=== PATIENT | female | born 1970 | race African-American/Black ===

== ENCOUNTER 2017-05-19 02:38 | Inpatient (IN) | payer OTHER ==
[~2017-05-19] VITALS: Ht 160 cm; Wt 102.9 kg
[2017-05-19] VITALS (8 sets, daily range): BP systolic 121–214; BP diastolic 59–114
--- NOTE | ~2017-05-19 | HC ---
[facility] [place] [address] CONSULTATION Name: MELODY WHITAKER Room #: 214-P [facility] IN M.R.#: [id number] Admission: 05/19/17 Attend Phys: Robert Olea MD Discharge: 05/20/17 Date of : 70 Report #: [id number] THIS REPORT FOR: //name// CC: Dino Olea MD DATE OF SERVICE: 05/19/2017 TYPE OF REPORT: General surgery consultation. REASON FOR CONSULTATION: Abdominal pain. HISTORY OF PRESENT ILLNESS: This is a 46-year-old -[place] female patient of Dr. Georgina Asher, who developed acute onset postprandial abdominal pain starting 2-3 hours after having eaten at [employer]. Her pain has become more persistent and worsening. She has had associated nausea with no emesis and denies any fever or chills. She passed a bowel movement with no relief of her symptoms. She was seen in the [facility] where she underwent a CT of the abdomen and pelvis showing cholelithiasis without evidence for acute cholecystitis. No other acute findings were seen on the CT scan. I have been asked to see the patient for further evaluation and treatment. PAST MEDICAL HISTORY: Significant for hypertension, stroke in 2015 and asthma. PAST SURGICAL HISTORY: C-sections x 3 and excision of a back cyst and tonsillectomy/adenoidectomy. MEDICATIONS: Include Tessalon Perles and albuterol. ALLERGIES: No known drug allergies. FAMILY HISTORY: Significant for diabetes mellitus. SOCIAL HISTORY: The patient denies use of alcohol or illicit drugs. She smokes cigarettes daily. She works at [employer]. REVIEW OF SYSTEMS: As per history of present illness and in addition: GENERAL: The patient denies unintentional weight loss. Denies fever or chills. HEENT: Denies changes in taste, vision, hearing or smell. RESPIRATORY: Denies shortness of breath, COPD or asthma. CARDIOVASCULAR: Denies chest pain or palpitations. GASTROINTESTINAL: As per history of present illness. Denies bright red blood per rectum. GENITOURINARY: Denies dysuria, urgency, increased urinary frequency or [facility] [address] [place] [address] CONSULTATION Name: MELODY WHITAKER Room #: 214-P [facility] IN [facility].#: [id number] Admission: 05/19/17 Attend Phys: Robert Olea MD Discharge: 05/20/17 Date of : 70 Report #: [id number] hematuria. MUSCULOSKELETAL: Denies myalgia, arthralgia or arthritis. NEUROLOGICAL: Denies headaches, numbness or tingling. PSYCHIATRIC: Denies depression, anxiety or suicidal ideations. SKIN AND INTEGUMENTARY: Denies any skin lesions, rashes or moles. ENDOCRINE: Denies polydipsia, polyuria, heat or cold intolerance. HEMATOLOGIC: Denies easy bleeding, bruising or anemia. All other review of systems is negative. PHYSICAL EXAMINATION: VITAL SIGNS: Temperature 97.9, blood pressure 155/91, pulse 76 and respirations 18. GENERAL: This is a 46-year-old morbidly obese female patient with a BMI of 40.2. She is in no acute distress, although she appears uncomfortable. HEENT: Head is atraumatic and normocephalic with moist mucosal membranes. She has no scleral icterus. NECK: Supple. No appreciable lymphadenopathy. Trachea is midline. CHEST: Clear bilaterally. No crackles or wheezes. CARDIOVASCULAR: Regular rate and rhythm. S1 and S2. ABDOMEN: Soft but tender to palpation, greatest in the right upper quadrant. She has a negative Hendricks sign. No rebound, guarding or palpable masses. No appreciable hernias. GENITOURINARY: Normal external female genitalia. EXTREMITIES: No clubbing, cyanosis or edema. NEUROLOGICAL: Cranial nerves 2 through 12 grossly intact. PSYCHIATRIC: Normal mood and affect. SKIN AND INTEGUMENTARY: No acute inflammatory changes, rashes or lesions are present. LABORATORY DATA: CBC shows a white blood cell count of 10.4, hemoglobin 13.8, hematocrit 40.9 and platelets 231. She had normal liver function tests. Electrolytes showed a sodium 140, potassium 3.9, chloride 105, CO2 of 27, BUN 9, creatinine 0.9 and glucose 117. Cholesterol and LDL cholesterol were elevated. Urinalysis showed 1+ blood in her urine and 2.0 urobilinogen with 1-9 bacteria per high-power field. RADIOLOGICAL DATA: Abdominal ultrasound showed multiple gallstones within the gallbladder. Her common bile duct measured 9 mm. No gallbladder wall thickening was seen. CT of the abdomen and pelvis showed layering gallstones within the gallbladder, some of which contained gas and measured up to 15 mm. There is no intrahepatic or extrahepatic bile duct enlargement seen on the CT scan. IMPRESSION AND PLAN: This is a 46-year-old female patient with persistent, worsening right upper quadrant abdominal pain and nausea, who has evidence for cholelithiasis on her imaging studies. There is conflicting evidence on whether [address] [place] [address] CONSULTATION Name: MELODY WHITAKER Room #: 214-P [facility] IN M.R.#: [id number] Admission: 05/19/17 Attend Phys: Robert Olea MD Discharge: 05/20/17 Date of : 70 Report #: [id number] she has a dilated common bile duct; however, her liver function tests and lipase are within normal limits. We discussed the pathophysiology and natural history of biliary disease as well as treatment alternatives and surgical options. The patient will benefit from laparoscopic cholecystectomy with cholangiogram. We discussed the risks, benefits and expectations of the operation in detail. The patient expressed understanding and wishes to proceed. She will be taken to the operating room at the next earliest availability. I sincerely appreciate the opportunity to participate in the care of this patient and will leave further recommendations and orders in the electronic medical record as appropriate. <ELECTRONICALLY SIGNED> By: Naren Parnell MD, FACS 05/21/17 1522 1244 25 Naren Parnell MD, FACS /nt
--- NOTE | ~2017-05-19 | O ---
[facility] [place] [address] OPERATIVE REPORT Name: MELODY WHITAKER Room #: 214-P ADM IN M.R.#: [id number] Admission: 05/19/17 Attend Phys: Robert Olea MD Discharge: Date of : 70 Report #: [id number] THIS REPORT FOR: //name// CC: Georgina Olea DATE OF SERVICE: 05/19/2017 SURGEON: Naren Parnell MD CUSTOMER ACCOUNTS ADVISOR: None. PREOPERATIVE DIAGNOSES: 1. Symptomatic cholelithiasis. 2. Morbid obesity (body mass index 40). POSTOPERATIVE DIAGNOSES: 1. Symptomatic cholelithiasis. 2. Morbid obesity (body mass index 40). PROCEDURE: Laparoscopic cholecystectomy with cholangiogram. ANESTHESIA: General endotracheal anesthesia and local anesthetic. ESTIMATED BLOOD LOSS: 5 mL. SPECIMEN: Gallbladder. COMPLICATIONS: None appreciated. INDICATIONS FOR PROCEDURE: This is a 46-year-old female patient who has had difficulty with postprandial right upper quadrant abdominal pain and bloating. She underwent a CT scan through the emergency room showing cholelithiasis. She had normal liver function tests and normal lipase with no leukocytosis. Ultrasound showed possible biliary ductal dilatation. The patient presents now for laparoscopic cholecystectomy with cholangiogram. OPERATIVE FINDINGS: Upon entrance into the abdominal cavity, the gallbladder appeared normal without acute inflammatory changes. The liver, stomach, small-bowel and colon in the surrounding area appeared otherwise normal. The critical view consisting of cystic artery, cystic duct and lower edge of the gallbladder forming a window through which the liver was visible was seen prior to clipping the cystic duct for cholangiogram. The cholangiogram was normal with filling of the entire biliary tree and free flow of contrast into the duodenal sweep without filling defects. After removal of the gallbladder, 3 clips remained on the cystic duct stump. The gallbladder was opened on the back [address] [address] OPERATIVE REPORT Name: MELODY WHITAKER Room #: 214-P [facility] IN M.R.#: [id number] Admission: 05/19/17 Attend Phys: Robert Olea MD Discharge: Date of : 70 Report #: [id number] table. Moderate sized nonpigmented gallstones were present within the gallbladder. At the conclusion of the operation, sponge, needle, and instrument counts were correct. There was no evidence for iatrogenic injury or other significant intraabdominal pathology. DESCRIPTION OF PROCEDURE IN DETAIL: After the risks, benefits and expectations of the operation were discussed in detail with the patient, informed consent was obtained. The patient was identified in the preoperative holding area. She was given IV antibiotics as documented in the chart in line with SCIP metrics. The patient was then taken to the operating room and she was placed in the supine position. SCDs were placed on the patient's bilateral lower extremities and pneumatic compression was initiated. The patient was then given IV sedation and she was intubated without incident. A time-out was performed to identify the correct patient and procedure. The patient's abdomen was then prepped and draped in the standard sterile fashion. Local anesthetic was infiltrated into the skin and subcutaneous tissue in the supraumbilical area where a curvilinear incision was made with #15 blade scalpel. Dissection was carried down to the fascia. A small transverse fascial opening was made. A 10-mm Visiport was then placed intraperitoneally with a 0-degree angled laparoscope. Pneumoperitoneum was achieved with insufflation of carbon dioxide to 15 mmHg. A 30-degree angled laparoscope was inserted. The patient was placed in the reverse Trendelenburg position, rotated to her left. A subxiphoid 5-mm and right subcostal 5-mm ports times 2 were placed under direct visualization after local anesthetic was infiltrated into the skin and subcutaneous tissue and appropriately sized incisions were made. Findings are as noted above. The dome of the gallbladder was retracted in a cephalad direction. The gallbladder peritoneum was then scored medially and laterally with the ultrasonic dissector. Dissection was carried out around the cystic artery and cystic duct to identify both structures as the only two structures entering the gallbladder. The critical view of safety was identified. A clip was then placed on the cystic duct at its junction with the neck of the gallbladder. A cholangiogram was performed through a small ductotomy. Cholangiogram findings are as noted above. The cholangiocatheter was removed and the cystic duct was triply clipped distal to the ductotomy. The duct was divided at the ductotomy with the ultrasonic dissector with a good seal. The cystic artery was divided with the ultrasonic dissector as well with good hemostasis. The gallbladder was then dissected out of the liver bed without entrance into the gallbladder or liver bed. The gallbladder was placed in an Endopouch and removed through the supraumbilical port site with mild stretching of the fascia. A tipxyr-wz-ptibl 0 PDS suture was placed to approximate the fascia. The abdominal cavity was reentered. The liver bed was hemostatic and the Hemoclips were secure. The fluid within the abdominal cavity was suctioned and ran clear. Other findings are as noted above. The fascial suture was then tied under direct visualization [address] [address] OPERATIVE REPORT Name: MELODY WHITAKER Room #: 214-P [facility] IN M.R.#: [id number] Admission: 05/19/17 Attend Phys: Robert Olea MD Discharge: Date of : 70 Report #: [id number] to ensure no incorporation of intra-abdominal content. The abdominal cavity was desufflated and the ports were removed. Interrupted subcuticular 4-0 Monocryl sutures and Dermabond were used to close the skin incisions. The patient tolerated the procedure well. She was awakened, extubated, and taken to recovery room in stable condition with no apparent intraoperative complications. <ELECTRONICALLY SIGNED> By: Naren Parnell MD, FACS 05/19/17 1730 [id number] [id number] Naren Parnell MD, FACS /nt
--- NOTE | ~2017-05-19 | S ---
[facility] [place] [place] [address] SURGICAL PATH RPT PROCEDURE Name: ALYCIA WHITAKER Room #: 214-P [facility] IN M.R.#: [id number] Admission: 05/19/17 Date of : 70 Discharge: 05/20/17 Report #: [id number] Path Case #: [id number] PATHOLOGY REPORT COLLECTION DATE: 05/19/2017 RECEIVED DATE: 05/19/2017 SUBMITTING PHYS: Dr. Naren Parnell OTHER PHYS: Dr. Robert Carlson SPECIMEN(S) RECEIVED: A.Gallbladder * * * * * * * * * * * * FINAL DIAGNOSIS: Gallbladder, cholecystectomy: - Mild chronic cholecystitis. - Cholelithiasis. (IUV:addy; 05/22/2017) PATHOLOGIST: Katy Clement M.D. REPORT ELECTRONICALLY SIGNED BY: Katy Clement M.D. DATE/TIME: 05/22/2017 13:41 * * * * * * * * * * * * GROSS PATHOLOGY: Received in formalin labeled "Alycia Whitaker gallbladder," is a 8.2 x 4.5 x 1.4 cm, previously opened gallbladder with dark green, wrinkled serosal surfaces. Opening the gallbladder reveals dark donis, velvety mucosa and an average wall thickness of 0.2 cm. Calculi are present, measuring 1.8 cm in maximum dimension, possessing a bright yellow and smooth appearance, and feeling friable to the touch. No masses are noted grossly. [employer] sections from the body and fundus are submitted along with the proximal margin in cassette A1. (TSD; 05/19/2017) CLINICAL HISTORY: Symptomatic cholelithiasis INITIAL CPT CODE(S): A; 96117 Professional services performed by [facility] at [facility] [address] , [place] [address] [facility] [address] [place] [address] SURGICAL PATH RPT PROCEDURE Name: ALYCIA WHITAKER Room #: 214-P [facility] IN .R.#: [id number] Admission: 05/19/17 Date of : 70 Discharge: 05/20/17 Report #: [id number] Path Case #: [id number] Technical services performed by [facility] at [address] [place] [address], [facility] [address], [place] [address]. [place] [address] PHONE: [phone] DIRECTOR: Asad Shirley M.D. * * * END OF REPORT * * *
[2017-05-19] MEDS ORDERED: TESSALON PERLE100 MG PO (03:01)
[2017-05-19] MEDS ORDERED: PROAIR HFA8.5 GM INH (03:01)
[2017-05-19 03:02] LABS: URINE BILIRUBIN NEGATIVE (Negative); URINE BLOOD 1+ (Negative); URINE CLARITY CLEAR; URINE COLOR YELLOW; URINE GLUCOSE-RANDOM* NEGATIVE (Negative); URINE KETONES NEGATIVE (Negative); URINE LEUKOCYTES NEGATIVE (Negative); URINE NITRITE NEGATIVE (Negative); URINE PROTEIN (DIPSTICK) NEGATIVE (Negative)
[2017-05-19 03:03] LABS: ABSOLUTE NEUTROPHILS 6.4 thou/uL (1.4-8.2); BASOPHILS 0.6 % (0.0-2.0); EOSINOPHILS 2.6 % (0.0-3.0); HEMATOCRIT 40.9 % (37.0-47.0); HEMOGLOBIN 13.8 gm/dL (12.0-15.0); LYMPHOCYTES 28.1 % (24.0-44.0); MCH 28.5 pg (26.0-34.0); MCHC 33.7 g/dL (28.0-37.0); MCV 84.6 fL (80.0-100.0); MONOCYTES 7.1 % (1.0-8.0); PLATELET COUNT 231 thou/uL (150-400); POLYS 61.6 % (36.0-66.0); RBC 4.84 mil/uL (4.20-5.00); RDW 14.3 % (10.5-14.5); WBC 10.4 thou/uL (4.0-11.0)
[2017-05-19 03:09] LABS: ANION GAP 8 mmol/L (7-16); BUN 9 mg/dL (7-18); CALCIUM 8.7 mg/dL (8.5-10.1); CHLORIDE 105 mmol/L (98-107); CO2 27 mmol/L (21-32); CREATININE 0.9 mg/dL (0.6-1.0); GLUCOSE 117 mg/dL (74-106); POTASSIUM 3.9 mmol/L (3.5-5.1); SODIUM 140 mmol/L (136-145)
[2017-05-19 03:15] LABS: ALBUMIN 3.5 g/dL (3.4-5.0); DIRECT BILIRUBIN < 0.1 mg/dL (<0.1-0.3); LIPASE 82 U/L (73-393); SGOT 15 U/L (15-37); SGPT 18 U/L (30-65); TOTAL BILIRUBIN 0.2 mg/dL (<0.1-1.0); TOTAL PROTEIN 7.3 g/dL (6.4-8.2)
[2017-05-19 03:17] LABS: BACTERIA 1-9 Few /HPF (None Seen); CASTS None Seen /LPF (None Seen); CRYSTALS None Seen /LPF (None Seen); MUCUS None Seen strn/LPF (None Seen); SQUAMOUS 0-3 Few /LPF (0-3); URINE RBC 0-2 Rare /HPF (0-2); URINE WBC None Seen /HPF (0-5)
[2017-05-19 08:31] LABS: CHOLESTEROL 229 mg/dL (<200); HDL CHOLESTEROL 51 mg/dL (>40); LDL CHOLESTEROL 161 mg/dL (<100); TC:HDL 4.5 Ratio (Not establshd); TRIGLYCERIDE 88 mg/dL (<150); VLDL 18 mg/dL (<40)
[2017-05-19] MEDS ORDERED: HYDROCODONE-AP1 EAC6 PO (14:16)
[2017-05-19] MEDS ORDERED: SENNA-S TABLET1 EACH PO (14:16)
[2017-05-20 04:46] LABS: CALCIUM 8.7 mg/dL (8.5-10.1); CREATININE 1.3 mg/dL (0.6-1.0)
[2017-05-20 04:51] VITALS: BP 124/53
[2017-05-20 07:30] VITALS: BP 159/90
[2017-05-20 11:30] VITALS: BP 143/75
[2017-05-20 13:42] VITALS: BP 159/90
[2017-05-20] MEDS ORDERED: NORVASC10 MG PO (13:57)
== END 2017-05-20 15:45 | disposition home or self-care (01) | DRG 418 ==
LOC: ER 02:38 → EROBS 04:48 → 2N 04:48
PROVIDERS: Emergency Medicine; Surgery
DX: K80.20 Calculus of gallbladder without cholecystitis without obstruction (principal); Z68.41 Body mass index [BMI] 40.0-44.9, adult; E66.01 Morbid (severe) obesity due to excess calories; I16.0 Hypertensive urgency; F17.210 Nicotine dependence, cigarettes, uncomplicated; K82.8 Other specified diseases of gallbladder; I10 Essential (primary) hypertension; J45.909 Unspecified asthma, uncomplicated; Z86.73 Personal history of transient ischemic attack (TIA), and cerebral infarction without residual deficits; Z28.21 Immunization not carried out because of patient refusal
CPT/HCPCS: 10081; 50010; 50101; 50249; 50411; 50555; 50558; 50962; 51975; 52265; 53307; 54022; 54118; 55245; 55317; 56462; 56525; 56526; 62110; 62900; 70005